=== PATIENT | female | born 1955 | race Caucasian/White ===

== ENCOUNTER 2017-05-16 11:30 | Inpatient (IN) | payer OTHER ==
[~2017-05-16] VITALS: Ht 147.3 cm; Wt 88.2 kg
[~2017-05-16 11:30] MED LIST: ADVIL,NUPRIN,M200 MG PO; ALBUTEROL1.25 MG/3 IH; ALBUTEROL17 GM IH; AMOXICILLIN875 MG PO; CARDIZEM60 MG PO; DELTASONE20 M1 PO; DILTIAZEM 24HR120 MG PO; DUONEB 2.5-0.5 M3 ML AEROSOL; HYDROCHLOROTH12.5 MG PO; LEVOFLOXACIN750 MG PO; MORGIDOX100 MG PO; OMEPRAZOLE40 M1 PO; PAXIL20 MG PO; PAXIL40 M1 PO; PAXIL40 MG PO; PREDNISONE10 MG PO; PREDNISONE20 MG PO; PREVACID30 MG PO; PROAIR HFA8.5 GM IH; SPIRIVA1 INHALATI IH; SYMBICORT60 INHALAT IH; VIOXX PO; ZYRTEC10 M3 PO
[2017-05-16 12:55] LABS: CHLORIDE 98 mEq/L (99-109); POTASSIUM 3.7 mEq/L (3.7-5.4); SODIUM 138 mEq/L (136-147)
[2017-05-16 12:57] LABS: GLUCOSE 92 mg/dL (70-99)
[2017-05-16 12:58] LABS: ANION GAP 10 MEQ/L (2-14)
[2017-05-16 12:59] LABS: HEMATOCRIT 31.7 % (36.0-46.0); MCH 20.8 PG (29.0-34.0); MCHC 28.7 G/DL (30.0-36.0); MCV 72.4 FL (83-99); MEAN PLAT.VOLUME 8.7 uM^3 (9.5-12.4); PLATELET COUNT 582 K/uL (156-360); RBC DIS.WIDTH-CV 20.5 % (11.8-14.6); RBC DIS.WIDTH-SD 52.1 % (39-53); RED BLOOD COUNT 4.38 M/uL (3.80-5.20); WHITE BLOOD COUNT 18.4 K/uL (4.1-10.2)
[2017-05-16 13:01] LABS: GFR ESTIMATE (CALCULATED) > 59 mL/min/; UREA NITROGEN (BUN) 9 mg/dL (9-23)
[2017-05-16 16:19] LABS: HDL CHOLESTEROL 54 MG/DL (Desirable>=50); LDL CHOLESTEROL 97 mg/dL (Desirable<100); NON-HDL CHOLESTEROL 145 mg/dL (Desirable<160); TOTAL CHOLESTEROL 199 mg/dL (Desirable<200); TRIGLYCERIDES 238 MG/DL (Normal: <150)
[2017-05-16 16:54] VITALS: BP 158/77
[2017-05-16 20:24] VITALS: BP 165/105
[2017-05-16 23:57] VITALS: BP 169/76
[2017-05-17 03:39] VITALS: BP 171/87
[2017-05-17 07:02] LABS: ALKALINE PHOSPHATASE 106 IU/L (3-129); ANION GAP 6 MEQ/L (2-14); CHLORIDE 98 MEQ/L (99-109); GFR ESTIMATE (CALCULATED) > 59 mL/min/; GLUCOSE 111 mg/dL (70-99); POTASSIUM 4.2 MEQ/L (3.7-5.4); SAMPLE HEMOLYSIS CHECK 0; SAMPLE ICTERIC CHECK 0; SAMPLE LIPEMIA CHECK 0; SODIUM 139 MEQ/L (136-147); TOTAL BILIRUBIN 0.3 MG/DL (0.0-1.0); UREA NITROGEN (BUN) 7 mg/dL (9-23)
[2017-05-17 07:03] LABS: MCH 21.3 PG (29.0-34.0); MCHC 28.8 G/DL (30.0-36.0); MCV 74.2 FL (83-99); MEAN PLAT.VOLUME 8.7 uM^3 (9.5-12.4); PLATELET COUNT 567 K/uL (156-360); RBC DIS.WIDTH-CV 20.9 % (11.8-14.6); RBC DIS.WIDTH-SD 54.9 % (39-53); RED BLOOD COUNT 4.31 M/uL (3.80-5.20); WHITE BLOOD COUNT 14.8 K/uL (4.1-10.2)
[2017-05-17 07:15] LABS: Estimated Average Glucose 143 mg/dL (70-123); HEMOGLOBIN A1c (GLYCOHEMOGLOB) 6.6 % HGB (Below 5.7)
[2017-05-17 08:25] VITALS: BP 153/67
[2017-05-17 17:03] VITALS: BP 122/67
[2017-05-17 19:52] VITALS: BP 122/62
[2017-05-18] VITALS: BP 136/67
[2017-05-18 03:57] VITALS: BP 134/63
[2017-05-18 07:36] VITALS: BP 156/72
[2017-05-18 11:29] VITALS: BP 151/72
[2017-05-18 15:22] VITALS: BP 151/74
[2017-05-18] MEDS ORDERED: PRAVASTATIN SOD40 MG PO (17:26)
[2017-05-18] MEDS ORDERED: CLOPIDOGREL75 MG PO (17:26)
[2017-05-18] MEDS ORDERED: CARDIZEM CD,CA240 MG PO (17:27)
[2017-05-18] MEDS ORDERED: HYDROCHLOROTHIA25 MG PO (17:27)
[2017-05-18] MEDS ORDERED: ASPIR-LOW81 MG PO (17:27)
[2017-05-18] MEDS ORDERED: PANTOPRAZOLE SO40 MG PO (17:27)
== END 2017-05-18 18:17 | disposition home or self-care (01) | DRG 64 ==
LOC: EME 11:30 → EDOF 14:34 → 5SOUTH 14:34 → ENRESERV 14:36 → 5SOUTH 16:05
PROVIDERS: Emergency Medicine; Hospitalist
DX: I63.231 Cerebral infarction due to unspecified occlusion or stenosis of right carotid arteries (principal); I61.4 Nontraumatic intracerebral hemorrhage in cerebellum; G81.94 Hemiplegia, unspecified affecting left nondominant side; J96.10 Chronic respiratory failure, unspecified whether with hypoxia or hypercapnia; D72.829 Elevated white blood cell count, unspecified; T38.0X5A Adverse effect of glucocorticoids and synthetic analogues, initial encounter; Z99.81 Dependence on supplemental oxygen; B19.10 Unspecified viral hepatitis B without hepatic coma; J44.9 Chronic obstructive pulmonary disease, unspecified; D64.9 Anemia, unspecified; G43.909 Migraine, unspecified, not intractable, without status migrainosus; I10 Essential (primary) hypertension; E78.5 Hyperlipidemia, unspecified; K21.9 Gastro-esophageal reflux disease without esophagitis; F41.9 Anxiety disorder, unspecified; F32.9 Major depressive disorder, single episode, unspecified; F17.210 Nicotine dependence, cigarettes, uncomplicated; E66.9 Obesity, unspecified; Z68.41 Body mass index [BMI] 40.0-44.9, adult; Z91.041 Radiographic dye allergy status; Z82.49 Family history of ischemic heart disease and other diseases of the circulatory system; Z83.3 Family history of diabetes mellitus
CPT/HCPCS: 70450; 70544; 70549; 70551; 80048; 80053; 80061; 83036; 85027; 92610 GN; 93306; 93880; 94640; 94640 76; 94799; 99202; 99281; 99283; J1644

== ENCOUNTER 2017-06-15 22:26 | Inpatient (IN) | payer OTHER ==
[~2017-06-15] VITALS: Ht 147.3 cm; Wt 88.5 kg
[~2017-06-15 22:26] MED LIST changes: +ASPIR-LOW81 MG PO; +CARDIZEM CD,CA240 MG PO; +CLOPIDOGREL75 MG PO; +HYDROCHLOROTHIA25 MG PO; +PANTOPRAZOLE SO40 MG PO; +PRAVASTATIN SOD40 MG PO
[2017-06-16] VITALS (13 sets, daily range): BP systolic 126–171; BP diastolic 66–92
[2017-06-16] MEDS ORDERED: HYDROCODON-ACE1 EAC7 PO (12:24)
[2017-06-16 12:36] LABS: METH RESISTANT S AUREUS PCR NEGATIVE (NEGATIVE)
[2017-06-16 12:39] LABS: PROBE CHECK PASS; SPECIMEN PROCESSING CONTROL PASS
[2017-06-17 04:00] VITALS: BP 150/68
[2017-06-17 07:19] VITALS: BP 151/78
== END 2017-06-17 11:48 | disposition home health service (06) | DRG 38 ==
LOC: ENRESERV 22:26 → 2SOUTH 06-16 05:31 → 4EAST 06-16 05:31 → ENRESERV 06-16 08:11 → 4WEST 06-16 10:00 → ENRESERV 06-16 10:11 → 2SOUTH 06-16 10:11 → 4WEST 06-16 10:48 → 2SOUTH 06-16 12:24 → EDSTATUS 06-16 15:39 → SDC 06-16 15:39 → 2SOUTH 06-16 15:40 → ENRESERV 06-16 20:18 → 4EAST 06-16 22:16
PROVIDERS: Surgery
DX: I65.21 Occlusion and stenosis of right carotid artery (principal); I69.354 Hemiplegia and hemiparesis following cerebral infarction affecting left non-dominant side; I69.398 Other sequelae of cerebral infarction; R20.0 Anesthesia of skin; J44.9 Chronic obstructive pulmonary disease, unspecified; I10 Essential (primary) hypertension; Z99.81 Dependence on supplemental oxygen; G43.909 Migraine, unspecified, not intractable, without status migrainosus; K21.9 Gastro-esophageal reflux disease without esophagitis; K44.9 Diaphragmatic hernia without obstruction or gangrene; F17.210 Nicotine dependence, cigarettes, uncomplicated; Z79.82 Long term (current) use of aspirin; Z86.718 Personal history of other venous thrombosis and embolism
CPT/HCPCS: 87641; 93005; 94640; 94640 76; 94799; 99202; C1768; J0131; J0690; J1100; J1644; J2405; J2720; J2795; J3010; J7120